=== PATIENT | male | born 1985 | race Caucasian/White ===

== ENCOUNTER 2021-07-08 11:44 | Emergency (ER) | payer BC ==
[2021-07-08] MEDS ORDERED: DEXAMETHASONE 10 MG/ML VIAL IM STA (12:29)
[2021-07-08] MEDS ORDERED: KETOROLAC 60 MG/2 ML VIAL IM STA (12:29)
[2021-07-08] MEDS ORDERED: CYCLOBENZAPRINE 10 MG TABLET PO STA (12:29)
--- NOTE | 2021-07-08 12:34 | ED Physician Documentation ---
History of Present Illness - Stated complaint Stated Complaint: BACK PX - Chief complaint Chief Complaint: Back Pain - History obtained from History obtained from: Patient - Additonal information Additional information: Patient comes emergency department chief complaint of left low back pain after a sneeze 2 weeks ago. Patient states that he has a history of occasional low back spasm and that he has had similar symptoms before. However, he states that the intensity seems to be more so this time, and that the pain is radiating down the back of his left leg to his knee. He states that after he sneezed, he felt a "twinge" in his back but that this was discomfort would get better as he moves about throughout the day. However, every morning after lying in bed, he states it feels stiff and painful and is hard for him to get around. Patient was seen yesterday urgent care and given tizanidine and a shot of Toradol, and this seemed to help. However, he feels like the Flexeril that he took last time worked better than the tizanidine and is requesting that his muscle relaxant be switched. He also states that the last time he had this happen, a steroid taper was very helpful. Patient denies any loss of bowel or bladder control. No fevers. He is otherwise healthy. No distinct injury other than the twisting when he sneezed. Patient has never had an MRI of his lumbar spine. No other complaints at this time. Review of Systems Ten Systems: 10 systems reviewed and negative Constitutional: reports: Reviewed and negative Eyes: reports: Reviewed and negative Ears: reports: Reviewed and negative Nose: reports: Reviewed and negative Throat: reports: Reviewed and negative Cardiac: reports: Reviewed and negative Respiratory: reports: Reviewed and negative GI: reports: Reviewed and negative : reports: Reviewed and negative Skin: reports: Reviewed and negative Musculoskeletal: reports: Back pain Neurologic: reports: Reviewed and negative Psychiatric: reports: Reviewed and negative Endocrine: reports: Reviewed and negative Immunocompromised: reports: Reviewed and negative PD PAST MEDICAL HISTORY - Present Medications Home Medications: Ambulatory Orders Medication Instructions Recorded Confirmed Cyclobenzaprine [Flexeril] 10 mg PO TID PRN #20 tablet 07/08/21 Ibuprofen [Motrin] 800 mg PO Q8H PRN #30 tablet 07/08/21 predniSONE [Deltasone] 10 mg PO [id number] #42 tab 07/08/21 - Allergies Allergies/Adverse Reactions: Allergies Allergy/AdvReac Type Severity Reaction Status Date / Time No Known Drug Allergies Allergy Verified 07/08/21 11:58 PD ED PE NORMAL - Vitals Vital signs reviewed: Yes - General General: Alert and oriented X 3, No acute distress - HEENT HEENT: PERRL - Neck Neck: Supple, no meningeal sign - Respiratory Respiratory: No respiratory distress - Abdomen Abdomen: Soft, Non tender, Non distended - Derm Derm: Warm and dry - Extremities Extremities: No deformity - Neuro Neuro: Alert and oriented X 3 - Psych Psych: Normal mood, Normal affect Results - Vitals Vitals: Vital Signs - 24 hr 07/08/21 07/08/21 11:58 12:54 Temperature 36.5 C 36.5 C Heart Rate 90 88 Respiratory 16 16 Rate Blood Pressure 134/61 H 128/62 O2 Saturation 99 100 Oxygen O2 Source Room air PD MEDICAL DECISION MAKING - ED course Complexity details: considered differential, d/w patient ED course: The patient was treated symptomatically in the emergency department with IM Toradol and Decadron. He was given prescriptions for Flexeril and Decadron as well as 800 mg ibuprofen. We have discussed symptomatic management at home and the need for follow-up with his primary care physician to discuss MRI. We discussed the usual indications for return. Departure - Departure Disposition: 01 Home, Self Care Clinical Impression: Lumbar strain Qualifiers: Encounter type: initial encounter Qualified Code(s): S39.012A - Strain of muscle, fascia and tendon of lower back, initial encounter Condition: Stable Instructions: ED Sprain Strain Lumbar Prescriptions: predniSONE [Deltasone] 10 mg PO [id number] #42 tab Cyclobenzaprine [Flexeril] 10 mg PO TID PRN #20 tablet PRN Reason: Spasms Ibuprofen [Motrin] 800 mg PO Q8H PRN #30 tablet PRN Reason: PAIN &/OR FEVER Discharge Date/Time: 07/08/21 12:54
[2021-07-08 12:56] VITALS: BP 128/62
== END 2021-07-08 12:54 | disposition home or self-care (01) ==
LOC: ED 11:44
DX: S39.012A Strain of muscle, fascia and tendon of lower back, initial encounter (principal); X58.XXXA Exposure to other specified factors, initial encounter; Y93.89 Activity, other specified
CPT/HCPCS: 96372; 99283; A9270

== ENCOUNTER 2023-08-25 21:58 | Emergency (ER) | payer BC, OTHER ==
--- NOTE | 2023-08-25 22:06 | ED Physician Documentation ---
PD HPI CHEST PAIN - Stated complaint Stated Complaint: CHEST PRESSURE - Chief complaint Chief Complaint: Cardiac - History obtained from History obtained from: Patient - Additional information Additional information: HPI from patient. Patient c/o midline chest discomfort over past few days. He describes the sensation as "pressure", "like a hand pushing down"; however, in further describing this symptom, he says the sensation is brief, lasting nor more than a second; the sensation often is recurrent, with several such episodes occurring over a longer time span of minutes or hours. These episodes seem more pronounced at night when lying down. No exertional component, and there have not been any ongoing / constant chest pain episodes. He became more concerned tonight when he developed left shoulder burning sensation that radiated down LUE to fingertips with paresthesias at fingers. Onset was also associated with sensation of facial flushing which has resolved. He denies having had any of these symptoms in the past. Denies neck pain. No inciting event, nor are there exacerbating nor ameliorating factors regarding the LUE symptoms (which have improved but not resolved). Patient is non-smoker. No h/o HTN, high cholesterol, and no first- degree relatives with cardiac problems nor stroke. Denies leg swelling, denies dyspnea. No pleuritic component to symptoms. Review of Systems Cardiac: reports: Chest pain / pressure, Palpitations. denies: Pedal edema, Calf pain Respiratory: reports: Reviewed and negative GI: reports: Reviewed and negative PD PAST MEDICAL HISTORY - Past Medical History Past Medical History: Yes Psych: Anxiety - Present Medications Home Medications: Ambulatory Orders Medication Instructions Recorded Confirmed Cyclobenzaprine [Flexeril] 10 mg PO TID PRN #20 tablet 07/08/21 Ibuprofen [Motrin] 800 mg PO Q8H PRN #30 tablet 07/08/21 predniSONE [Deltasone] 10 mg PO [id number] #42 tab 07/08/21 buPROPion HCL [Bupropion HCl] 0.5 tab PO DAILY 08/25/23 08/25/23 cloNIDine [Catapres] 0.1 mg PO ONCE 08/25/23 08/25/23 - Allergies Allergies/Adverse Reactions: Allergies Allergy/AdvReac Type Severity Reaction Status Date / Time No Known Drug Allergies Allergy Verified 08/25/23 22:06 - Social History Does the pt smoke?: No Smoking Status: Never smoker Does the pt drink ETOH?: No Does the pt have substance abuse?: No PD ED PE NORMAL - Vitals Vital signs reviewed: Yes - General General: Alert and oriented X 3, No acute distress, Well developed/nourished - Cardiac Cardiac: RRR, No murmur - Respiratory Respiratory: No respiratory distress, Clear bilaterally - Abdomen Abdomen: Soft, Non tender - Extremities Extremities: No edema Results - Vitals Vitals: Vital Signs - 24 hr 08/25/23 08/25/23 08/25/23 22:02 22:06 22:33 Temperature 36.9 C Heart Rate 67 70 72 Respiratory 16 17 13 Rate Blood Pressure 149/81 H 138/92 H O2 Saturation 100 99 99 08/25/23 08/25/23 08/25/23 22:36 23:06 23:30 Temperature Heart Rate 87 75 73 Respiratory 14 15 17 Rate Blood Pressure 131/96 H 127/88 H O2 Saturation 97 97 97 08/25/23 23:57 Temperature Heart Rate 76 Respiratory 20 Rate Blood Pressure 137/82 H O2 Saturation 96 Oxygen O2 Source Room air - EKG (time done) No standard instances EKG releavant findings:: EKG personally interpreted by author of this note. Relevant findings are: Rate: Rate (enter#) (66) Rhythm: NSR [place]: Normal Intervals: Normal DE QRS: Normal Ischemia: Normal ST segments - Labs Labs: Laboratory Tests 08/25/23 08/25/23 22:27 22:27 WBC 9.5 RBC 5.64 Hgb 16.5 Hct 47.1 MCV 83.5 MCH 29.3 MCHC 35.0 RDW 12.2 Plt Count 295 MPV 9.7 Neut # (Auto) 5.6 Lymph # (Auto) 3.0 [place] # (Auto) 0.7 Eos # (Auto) 0.2 Baso # (Auto) 0.1 Absolute Nucleated RBC 0.00 Nucleated RBC % 0.0 Sodium 139 Potassium 3.6 Chloride 104 Carbon Dioxide 27 Anion Gap 8.0 BUN 11 Creatinine 1.0 Estimated GFR (MDRD) 84 L Glucose 90 Calcium 9.9 Total Bilirubin 0.4 AST 15 ALT 15 Alkaline Phosphatase 53 Troponin I High Sens 7.4 Total Protein 7.3 Albumin 4.5 Globulin 2.8 Albumin/Globulin Ratio 1.6 Lipase 41 - Rads (name of study) chest xray Relevant Findings:: Prelim report reviewed, EMP independent interpretation of test (I reviewed these images and my interpretation is no radiographic evidence of cardiopulmonary abnormality), See rad report PD Medical Decision Making - ED course Complexity details: reviewed results, re-evaluated patient, considered differential, d/w patient ED course: In further discussion regarding patient's c/o chest pain, the description eventually becomes highly suggestive of "skipped-beat" palpitations (including a description of a brief pause followed by a noticeably stronger beat (which he is describing as a hand briefly pushing, which he then revises to describing like a hand reaching inside and quickly squeezing, which is typical description for PACs/PVCs). He is NSR on payroll manager during stay and I do not see any PACs/PVCs on review, although he also did not have the palpitations sensation during this period. PACs/PVCs would not explain the LUE symptoms. However, he has normal EKG, normal CXR, and normal labs including normal hs-cTn. He has no obvious/apparent cardiac risk factors, and he is PERC negative regarding PE. Results d/w patient. Return precautions reviewed. The cause of his symptoms remains unclear. I advised him to follow up with his PMD for reevaluation, next available appointment. Departure - Departure Disposition: 01 Home, Self Care Clinical Impression: Palpitations Condition: Good Instructions: ED Chest Pain Atypical Unkn Cause, ED Palpitations Comments: There were no remarkable, concerning, nor diagnostic findings on tonight's tests. The cause of your symptoms remains unclear at this time. A serious/dangerous cause is very unlikely at this point, but you should follow-up with your primary care provider for reevaluation; call to arrange for next available appointment. Forms: PCP List Discharge Date/Time: 08/25/23 23:58
[2023-08-25 22:45] LABS: BASOPHILS # (AUTO) 0.1 10^3/uL (0.0-0.1); BASOPHILS % (AUTO) 0.6 %; EOSINOPHILS # (AUTO) 0.2 10^3/uL (0.0-0.7); EOSINOPHILS % (AUTO) 1.7 %; HCT - HEMATOCRIT 47.1 % (42.0-52.0); HGB - HEMOGLOBIN 16.5 g/dL (14.0-18.0); LYMPHOCYTES % (AUTO) 31.4 %; MEAN CORPUSCULAR HEMOGLOBIN 29.3 pg (27.0-31.0); MEAN CORPUSCULAR VOLUME 83.5 fL (80.0-94.0); MEAN PLATELET VOLUME 9.7 fL (7.4-11.4); MONOCYTES # (AUTO) 0.7 10^3/uL (0.0-1.0); NEUTROPHILS # (AUTO) 5.6 10^3/uL (1.5-6.6); NEUTROPHILS % (AUTO) 59.1 %; PLT - PLATELET COUNT 295 10^3/uL (130-450); RED BLOOD COUNT 5.64 10^6/uL (4.70-6.10); RED CELL DISTRIBUTION WIDTH 12.2 % (12.0-15.0); WHITE BLOOD COUNT 9.5 x10^3/uL (4.8-10.8)
[2023-08-25 23:06] LABS: ALBUMIN 4.5 g/dL (3.2-5.5); ALBUMIN/GLOBULIN RATIO 1.6 (1.0-2.2); BILIRUBIN,TOTAL 0.4 mg/dL (0.2-1.0); CALCIUM 9.9 mg/dL (8.5-10.3); POTASSIUM 3.6 mmol/L (3.5-4.5); TOTAL PROTEIN 7.3 g/dL (6.4-8.9); TROPONIN I HIGH SENSITIVITY 7.4 ng/L (2.3-19.7)
--- NOTE | 2023-08-25 23:34 | XRAY Report ---
PROCEDURE: Chest 1 View X-Ray INDICATIONS: Chest pain TECHNIQUE: One view of the chest was acquired. COMPARISON: None. FINDINGS: Surgical changes and devices: None. Lungs and pleura: No pleural effusions or pneumothorax. Lungs are clear. Mediastinum: Mediastinal contours appear normal. Heart size is normal. Bones and chest wall: No suspicious bony lesions. Overlying soft tissues appear unremarkable. IMPRESSION: No acute cardiopulmonary process. No focal airspace disease. Reviewed by: Enrike Tapia MD on 08/25/2023 11:33 PM [facility] Approved by: Enrike Tapia MD on 08/25/2023 11:33 PM [facility] Station ID: [id number]
[2023-08-26 00:19] VITALS: BP 137/82; O2SAT 96
== END 2023-08-25 23:58 | disposition home or self-care (01) ==
LOC: ED 21:58
DX: R00.2 Palpitations (principal)
CPT/HCPCS: 36415; 80053; 83690; 84484; 85025; 93005; 99283; 99284